=== PATIENT | male | born 1990 | race American Indian/Alaskan Native ===

== ENCOUNTER 2019-06-24 05:58 | Emergency (ER) | payer OTHER ==
[2019-06-24 06:07] VITALS: BP 112/46
--- NOTE | 2019-06-24 06:53 | XRay Report ---
LEFT HAND 3 VIEWS. INDICATION / CLINICAL INFORMATION: L hand injury COMPARISON: None available. FINDINGS: BONES / JOINT(S): Mildly comminuted avulsion at the base of the proximal phalanx of the first digit a long the ulnar aspect. No significant arthritis. SOFT TISSUES: No significant abnormality. ADDITIONAL FINDINGS: None. Signer Name: Kole Bustillo MD Signed: 06/24/2019 6:49 AM Workstation Name: [id number]
[2019-06-24] MEDS ORDERED: IBUPROFEN 800 MG TAB PO ONE (08:20)
--- NOTE | 2019-06-24 08:20 | Emergency Department Report ---
ED General Adult HPI - General Chief complaint: Extremity Injury, Upper Stated complaint: LT HAND SWELLING Time Seen by Provider: 06/24/19 07:30 Source: patient Mode of arrival: Ambulatory Limitations: No Limitations - History of Present Illness Initial comments: 28-year-old -[place] male patient presents with complaints of left thumb pain after a dresser fell on his hand this morning. He denies any loss of sensation or lacerations. He states he is unable to bend his thumb. MD Complaint: Left Thumb Pain -: Sudden Severity scale (0 -10): 8 Consistency: constant Improves with: none Worsens with: movement Associated Symptoms: denies other symptoms Treatments Prior to Arrival: none - Related Data Previous Rx's Medication Instructions Recorded Last Taken Type traMADoL [Ultram] 50 mg PO Q4HR PRN #15 tablet 11/26/13 Unknown Rx Acetaminophen/Codeine [Tylenol 1 tab PO Q8H PRN #5 tab 06/24/19 Unknown Rx /Codeine # 3 tab] Ibuprofen [Motrin 800 MG tab] 800 mg PO Q8HR PRN #21 tablet 06/24/19 Unknown Rx Allergies Allergy/AdvReac Type Severity Reaction Status Date / Time No Known Allergies Allergy Unverified 11/26/13 18:15 ED Review of Systems ROS: Stated complaint: LT HAND SWELLING Other details as noted in HPI Comment: All other systems reviewed and negative Musculoskeletal: as per HPI ED Past Medical Hx - Past Medical History Previous Medical History?: No - Surgical History Past Surgical History?: No - Social History Smoking Status: Never Smoker Substance Use Type: None - Medications Home Medications: Home Medications Medication Instructions Recorded Confirmed Last Taken Type traMADoL [Ultram] 50 mg PO Q4HR PRN #15 tablet 11/26/13 Unknown Rx Acetaminophen/Codeine [Tylenol 1 tab PO Q8H PRN #5 tab 06/24/19 Unknown Rx /Codeine # 3 tab] Ibuprofen [Motrin 800 MG tab] 800 mg PO Q8HR PRN #21 tablet 06/24/19 Unknown Rx ED Physical Exam - General Limitations: No Limitations General appearance: alert, in no apparent distress - Head Head exam: Present: atraumatic, normocephalic - Eye Eye exam: Present: normal appearance - Respiratory Respiratory exam: Absent: respiratory distress - Cardiovascular Cardiovascular Exam: Present: regular rate - Rectal Rectal exam: Present: deferred - Extremities Exam Extremities exam: Present: normal capillary refill. Absent: full ROM (limited range of motion noted of left thumb) - Expanded Upper Extremity Exam Left Hand L/R Back: 1 - Mild swelling with significant tenderness to palpation over the MCP joint. No snuffbox tenderness noted ED Course Vital Signs 06/24/19 06:01 Temperature 98.4 F Pulse Rate 79 Respiratory 18 Rate Blood Pressure 112/46 O2 Sat by Pulse 97 Oximetry ED Medical Decision Making - Radiology Data Radiology results: report reviewed LEFT HAND 3 VIEWS. INDICATION / CLINICAL INFORMATION: L hand injury COMPARISON: None available. FINDINGS: BONES / JOINT(S): Mildly comminuted avulsion at the base of the proximal phalanx of the first digit along the ulnar aspect. No significant arthritis. SOFT TISSUES: No significant abnormality. ADDITIONAL FINDINGS: None. - Medical Decision Making 28-year-old male patient here with left hand pain after dresser fell on his hand. X-ray shows fracture of left first MCP joint. Patient placed in a thumb spica splint. Recommend follow-up with orthopedics though within 2-3 days. Discussed strict return precautions in great detail with patient who states understanding Critical care attestation.: If time is entered above; I have spent that time in minutes in the direct care of this critically ill patient, excluding procedure time. ED Disposition Clinical Impression: Fracture of thumb, left, closed Qualifiers: Encounter type: initial encounter Phalanx: proximal Fracture alignment: displaced Qualified Code(s): S62.512A - Displaced fracture of proximal phalanx of left thumb, initial encounter for closed fracture Disposition: DC-01 TO HOME OR SELFCARE Is pt being admited?: No Condition: Stable Instructions: Finger Fracture (ED) Prescriptions: Ibuprofen [Motrin 800 MG tab] 800 mg PO Q8HR PRN #21 tablet PRN Reason: Pain, Moderate (4-6) Acetaminophen/Codeine [Tylenol /Codeine # 3 tab] 1 tab PO Q8H PRN #5 tab PRN Reason: Pain , Severe (7-10) Referrals: JOE LÓPEZ MD [Staff Physician] - 2-3 Days
== END 2019-06-24 10:08 | disposition home or self-care (01) ==
LOC: ED 05:58
DX: S62.512A Displaced fracture of proximal phalanx of left thumb, initial encounter for closed fracture (principal); W01.198A Fall on same level from slipping, tripping and stumbling with subsequent striking against other object, initial encounter; Y93.89 Activity, other specified; Y92.89 Other specified places as the place of occurrence of the external cause; Y99.8 Other external cause status